=== PATIENT | male | born 1970 | race Caucasian/White ===

== ENCOUNTER 2016-07-23 23:10 | Emergency (ER) | payer BC, OTHER ==
[2014-08-06 11:35] VITALS: BP 136/79
[~2016-07-23 23:10] MED LIST: LISI-334 PO
== END 2016-07-23 23:34 | disposition left against medical advice (07) ==
LOC: ER 23:10
DX: M25.521 Pain in right elbow (principal); M79.89 Other specified soft tissue disorders